=== PATIENT | female | born 1960 | race Caucasian/White ===

== ENCOUNTER 2021-08-05 07:51 | Day surgery (SDC) | payer OTHER ==
[2021-08-03 16:53] VITALS: BMI 22.8
[2021-08-05] MEDS ORDERED: GLYCOPYRROLATE 0.2 MG/1 ML VIAL ONE (09:07)
[2021-08-05] MEDS ORDERED: ACETAMINOPHEN 325 MG TABLET (FP) PO ONE (09:59)
[2021-08-05] MEDS ORDERED: SIMETHICONE 80 MG TAB.CHEW (FP) PO PRN (10:34)
[2021-08-05 11:00] VITALS: BP 96/60; PULSE 58; TEMP 97.8
== END 2021-08-05 11:25 | disposition home or self-care (01) ==
LOC: FASU-ENDO 07:51
PROVIDERS: ATTEND Internal Medicine Gastroenterology
PROC: 0DJD8ZZ Inspection of Lower Intestinal Tract, Via Natural or Artificial Opening Endoscopic (ICD-10-PCS; principal; 2021-08-05 09:12)
DX: Z12.11 Encounter for screening for malignant neoplasm of colon (principal); Z83.71 Family history of colonic polyps; K57.30 Diverticulosis of large intestine without perforation or abscess without bleeding